=== PATIENT | male | born 1955 | race African-American/Black ===

== ENCOUNTER 2017-02-08 18:06 | Emergency (ER) | payer OTHER, BC ==
[~2017-02-08] VITALS: Ht 193 cm; Wt 88.5 kg
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
[2017-02-08] MEDS ORDERED: fentaNYL PF VIAL 100 MCG/2 ML VIAL IV ONE ×2 (19:45→20:45)
[2017-02-08 20:21] LABS: POTASSIUM ISTAT 4.2 mmol/L (3.5-5.0)
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
[2017-02-08 22:00] VITALS: BP 143/97
[2017-02-08] MEDS ORDERED: DIAZ5TAB PO (22:08)
[2017-02-08] MEDS ORDERED: HYDR-971 PO (22:08)
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
== END 2017-02-08 22:31 | disposition home or self-care (01) ==
LOC: ER 18:06
DX: S13.9XXA Sprain of joints and ligaments of unspecified parts of neck, initial encounter (principal); S09.90XA Unspecified injury of head, initial encounter; M54.9 Dorsalgia, unspecified; Z88.2 Allergy status to sulfonamides; V49.49XA Driver injured in collision with other motor vehicles in traffic accident, initial encounter; Y93.89 Activity, other specified; Y92.89 Other specified places as the place of occurrence of the external cause; Y99.8 Other external cause status
CPT/HCPCS: 70450; 71010; 72125; 72128; 72131; 80047; 96374; 96376; 99284; J3010

== ENCOUNTER → 2017-04-03 | Outpatient (CLI) | payer OTHER, BC ==
[~2017-04-03] MED LIST: CYCL10TA2 PO; DIAZ5TAB PO; HYDR-971 PO; IOHEXOL 180 MG/ML 10 ML VIAL. ONE; [UNRECOGNIZED DRUG - OTHER]; [UNRECOGNIZED DRUG - OTHER]; methylPREDNISolone ACETATE 40 MG/ML VIAL. ONE; methylPREDNISolone ACETATE 80 MG/ML VIAL. ONE
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
== END | disposition home or self-care (01) ==
LOC: PNCL 07:32
PROVIDERS: ATTEND Anesthesiology
DX: M51.16 Intervertebral disc disorders with radiculopathy, lumbar region (principal); M96.1 Postlaminectomy syndrome, not elsewhere classified; M19.90 Unspecified osteoarthritis, unspecified site; Z88.2 Allergy status to sulfonamides
CPT/HCPCS: 62323; J1030; J1040

== ENCOUNTER → 2017-04-17 | Outpatient (CLI) | payer OTHER, BC ==
--- NOTE | 2017-04-17 09:45 | PN ---
DATE: 04/17/2017 PROGRESS NOTE FOR PAIN CLINIC DIAGNOSES: Lumbar radiculopathy with lumbar degenerative disk disease and post-lumbar laminectomy syndrome. HISTORY OF PRESENT ILLNESS: The patient is a 61-year-old male who returns for followup status post caudal epidural steroid injection x 1. The patient reports about 75% improvement in the low back and lower extremities, again more pain in the left than the right, but much better than it was. The patient reports he has been increasing his activity with greater ease and comfort and has been able to perform daily activities with better comfort with his back and legs; however, his chief complaint today is neck and left upper extremity pain. The patient has been doing physical therapy for about a week now, reports the therapy is actually increasing the pain in his neck and left arm. The patient reports he is having a very difficult time sleeping because of the left arm and neck with repositioning, having to get out of bed, take pain medication. The patient reports his pain as a 10 on a scale of 10 at all levels. He describes it as aching, sharp, dull, shooting, stabbing, tingling, constant, severe, nonbearable, again mostly in the neck and the left upper extremity, worse in the back and legs. He is doing much better. The patient reports no new motor or sensory deficits; however, no new bowel or bladder incontinence or other complaints. PHYSICAL EXAMINATION: VITAL SIGNS: Today, the patient's blood pressure is 166/107, pulse is 105, respirations 16, temperature 98.1 degrees Fahrenheit, height is 6 feet 4 inches, weighs 199 pounds. GENERAL: The patient is awake, alert, oriented, appropriate, has a very pleasant demeanor. HEENT: Head shows normocephalic, atraumatic. Extraocular movements are intact and symmetrical. Oral cavity shows mucous membranes moist and pink. Dentition is intact. NECK: Shows anterior throat supple without palpable lymphadenopathy noted. Swallow reflex is symmetrical. CHEST: Shows normal on inspection. Breath sounds are clear to auscultation bilaterally. HEART: Shows S1 and S2 clear. ABDOMEN: Soft, nontender, nondistended. No palpable organomegaly. There is no rebound or guarding demonstrated. BACK: The patient's back shows spine grossly in the midline. Normal appearing cervical lordotic curvature, thoracic kyphotic curvature and lumbar lordotic curvature. Lumbar paraspinous musculature shows some moderate tenderness with palpation in the lumbar distribution but only diffusely. The patient shows good rotational motion bilaterally and extension and flexion without difficulty. The patient shows rather cervical paraspinous musculature, which is symmetrical. There is moderate tenderness to palpation in the inferior aspect of the cervical paraspinous musculature superior medial trapezius, essentially equal right and left. The patient shows full rotational motion of the cervical spine; however, both laterally as well as extension and flexion without exacerbation of pain. EXTREMITIES: Upper extremity showed deep tendon reflexes at 2+ in the biceps and triceps tendons. 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 Lower extremities show deep tendon reflexes 2+ in the patellar, 1+ tendo calcaneus tendons are equal. Motor exam is strong with dorsiflexion, extension, quadriceps and hamstring flexion. Options were discussed with the patient and the patient's old chart was reviewed as his current medication regimen updated. Current review of systems updated today as well. We will proceed with a second caudal approach epidural steroid injection today with fluoroscopic guidance. Risks were again discussed including, but not limited to bleeding, infection, possibility of epidural hematoma and subsequent neurologic compromise, dural puncture, headaches, spinal cord and/or nerve damage, side effects of steroid medication and poor results regarding pain control. The patient understands and wishes to proceed. The patient will return to the clinic in approximately 2 weeks for followup, was counseled on return appointment, activity level and side effects to be aware of. We discussed to continue physical therapy as it may be sore prior to getting better with his neck and arm and his low back and legs is doing much better. Also, we will have him try meloxicam. The patient was given 50 mg once daily with instructions and side effects to be aware of. Also, refill hydrocodone 5 mg with instructions and side effects to be aware of discussed as well. ELAYNE LUCIA MD DR: RACHELE/berry JOB#: [id number] / [id number]
== END | disposition home or self-care (01) ==
LOC: PNCL 07:37
PROVIDERS: ATTEND Anesthesiology
DX: M51.16 Intervertebral disc disorders with radiculopathy, lumbar region (principal); M96.1 Postlaminectomy syndrome, not elsewhere classified; Z88.2 Allergy status to sulfonamides
CPT/HCPCS: 62323; J1030; J1040

== ENCOUNTER → 2017-05-02 | Outpatient (CLI) | payer OTHER, BC ==
--- NOTE | 2017-05-02 09:07 | PAIN ---
DATE OF SERVICE: 05/02/2017 DIAGNOSES: 1. Cervical radiculopathy. 2. Lumbar radiculopathy with post-lumbar laminectomy syndrome and lumbar degenerative disk disease. HISTORY OF PRESENT ILLNESS: The patient is a 61-year-old male who returns for followup status post caudal epidural steroid injection x 2. The patient reports good results, about 75% improvement, after the first one. After second one, only minimal improvement in the low back and bilateral lower extremity pain, worse on the left. The patient reports now chief complaint of neck and left upper extremity pain. He has had some difficulty with this as well for some time. We discussed a cervical epidural steroid injection on his last visit after second caudal which was only minimally better. The patient reports he would like to have something done with his neck and shoulder, as he is having more difficulty with the use of his left arm, increased loss of strength in the left hand. He rates it 10 on a scale of 10 in his pain level at all times in the low back, left leg, upper back, mid back, left arm and shoulder, aching, sharp, shooting, stabbing, tingling, severe, becoming more constant and unbearable, especially in the left arm and hand. The patient reports no other motor or sensory deficits or other complaints at this time. The patient reports it awakens him from sleep frequently. He is not sleeping well, as well. PHYSICAL EXAMINATION: VITAL SIGNS: The patient's blood pressure 155/76, pulse 58, respirations 18, temperature 97.8 degrees Fahrenheit, height 6 feet 4 inches, weight 197 pounds. GENERAL: The patient is awake, alert, oriented, appropriate, very pleasant demeanor. HEENT: Head shows normocephalic, atraumatic. Extraocular movements are intact, symmetrical. Oral cavity, mucous membranes are moist and pink. Dentition is intact. NECK: Shows anterior throat supple without palpable lymphadenopathy noted. Swallow reflex is symmetrical. CHEST: Shows normal on inspection. Breath sounds are clear to auscultation bilaterally. HEART: Shows S1 and S2 clear. ABDOMEN: Soft, nontender, nondistended. No palpable organomegaly. No rebound or guarding demonstrated. BACK: Shows spine grossly midline. Cervical paraspinous musculature shows some moderate tenderness with palpation in the inferior aspect of the cervical paraspinous muscles, more on the left than the right, especially into the trapezius musculature on the left side superiorly, but without radiation. Right side is only mildly tender with palpation. The patient's low back shows moderate tenderness with palpation. Some flattening of lumbar lordotic curvature is again appreciated with well-healed surgical scarring noted. EXTREMITIES: The patient's extremities showed lower extremity deep tendon reflexes at 2+ in the patellar and 1+ tendo calcaneus tendons. Motor exam is strong with 5/5 dorsiflexion and extension. Upper extremities showed 2+ biceps and triceps tendons bilaterally with deep tendon reflexes. Motor exam is strong with 5/5 field logistics coordinator strength on the right and approximately 4/5 on the left with bicep and tricep flexion as well as field logistics coordinator strength on the left side. Options were discussed with the patient. The patient's old chart was reviewed as his current medication regimen updated. Current review of systems updated today as well. We will proceed with a cervical epidural steroid injection. Risks were again discussed including, but not limited to bleeding, infection, possibility of epidural hematoma and subsequent neurological compromise, dural punctures, headaches, spinal cord and/or nerve damage, side effects of steroid medication and poor results regarding pain control. The patient understands and wishes to proceed. The patient will return to clinic in approximately 2 weeks for followup. She was counseled as to return appointment, activity level and side effects to be aware of. DIAGNOSIS: Cervical radiculopathy. PROCEDURE: Cervical epidural steroid injection with C-arm fluoroscopic guidance under sterile prep and drape, using local anesthetic, C6-C7 level. Medication injection is total of 120 mg Depo-Medrol plus total of 5 mL of preservative-free normal saline and 2 mL of Isovue for contrast. CONDITION AT DISCHARGE: Stable. The patient tolerated procedure well, had no complications. ELAYNE LUCIA MD DR: [email or web address]/berry JOB#: [id number] / [id number]
== END | disposition home or self-care (01) ==
LOC: PNCL 07:35
PROVIDERS: ATTEND Anesthesiology
DX: M54.12 Radiculopathy, cervical region (principal); M51.16 Intervertebral disc disorders with radiculopathy, lumbar region; Z88.2 Allergy status to sulfonamides
CPT/HCPCS: 62321; J1030; J1040